=== PATIENT | female | born 1975 | race African-American/Black ===

== ENCOUNTER 2020-06-03 04:38 | Day surgery (SDC) | payer OTHER ==
[2020-06-01 15:12] VITALS: BMI 35.5
[2020-06-03] MEDS ORDERED: LIDOCAINE HCL/PF 2% SDV 5ML VIAL ONE (08:35)
[2020-06-03] MEDS ORDERED: DEXAMETHASONE SOD PHOSPHATE 4 MG/1 ML VIAL ONE (08:35)
[2020-06-03] MEDS ORDERED: MIDAZOLAM HCL 2 MG/2 ML SINGLE DOSE VIAL ONE (08:36)
[2020-06-03] MEDS ORDERED: PROPOFOL 20 ML ONE (08:36)
[2020-06-03] MEDS ORDERED: LIDOCAINE 1%/EPI 1:100000 (20 ML MULTI DOSE VIAL) ONE (09:18)
--- NOTE | 2020-06-03 09:20 | HP ---
History & Physical Update - History History: No Change - Physical Physical: No Change - Assessment Assessment: No Change - Plan Plan: No Change
[2020-06-03] MEDS ORDERED: ceFAZolin SODIUM 1 GM VIAL ONE (09:46)
[2020-06-03] MEDS ORDERED: ceFAZolin 2 GRAM PREMIX BAG IVPB ONE (09:50)
[2020-06-03] MEDS ORDERED: ONDANSETRON 4 MG/2 ML VIAL IVPUSH PRN (09:53)
[2020-06-03] MEDS ORDERED: oxyCODONE HCL 5 MG TABLET PO PRN (09:53)
[2020-06-03] MEDS ORDERED: LACTATED RINGERS SOLUTION 1,000 ML IV SCH (10:00)
[2020-06-03] MEDS ORDERED: LIDOCAINE 1%/EPI 1:100000 (20 ML MULTI DOSE VIAL) IJ ONE (10:02)
--- NOTE | 2020-06-03 10:30 | OP ---
Operative Note - Note: Operative Date: 06/03/20 Pre-Operative Diagnosis: right axillary hidradenitis/cysts Operation: Excision, right axillary hidradenitis/cysts Findings: 1.5 cm cystic lesions of the right axilla x 2 Post-Operative Diagnosis: Same as Pre-op Surgeon: Román Hanson Anesthesia: General, Local Specimens Removed: axillary hidradenitis/cysts Estimated Blood Loss (mls): 3 Operative Report Dictated: Yes
[2020-06-03] MEDS ORDERED: oxyCODONE HCL 5 MG TABLET ONE (11:36)
[2020-06-03] MEDS ORDERED: oxyCODONE HCL 5 MG TABLET PO ONE (11:40)
[2020-06-03 13:15] VITALS: BP 133/78; PULSE 50; TEMP 97.5
--- NOTE | 2020-06-03 13:50 | OP ---
DATE OF OPERATION: 06/03/2020 PROCEDURE: Excision of a right axillary hydradenitis/cyst. PREOPERATIVE DIAGNOSIS: Right axillary hydradenitis/cyst. POSTOPERATIVE DIAGNOSIS: Right axillary hydradenitis/cyst. SURGEON: Román Hanson MD ANESTHESIA: General by laryngeal mask airway. FINDINGS AND PROCEDURE: This is a 44-year-old female who presents with recurrent axillary hydradenitis presenting as 2 inflamed inflammatory cystic lesions of the right axilla about 1.5 cm in size. Patient was placed initially on oral antibiotics and advised excision of the cystic lesions 2 weeks later. Consent was obtained after discussing the risks, benefits, and alternatives to the procedure. Patient was brought to the operating room and placed in supine position. General anesthesia via laryngeal mask airway was administered. The right arm was abducted 90 degrees, and a roll was placed under the patient's right shoulder. The area was prepped and draped in the usual sterile fashion. Using lidocaine 1% with epinephrine, local anesthesia was administered to the proposed incision site. Two elliptical incisions about 3 x 1 cm in size were made using scalpel blade No. 10, and dissection was carried down further with Bovie cautery until the ellipses of skin together with the cystic masses were taken down to the deep subcutaneous tissue. The wounds were irrigated with sterile normal saline until return was clear. The wounds were then closed with interrupted nylon 3-0 sutures in vertical mattress fashion, dressed with Bacitracin ointment and covered with sterile dressing. Patient was successfully extubated and transferred to the postanesthesia care unit in satisfactory condition. ESTIMATED BLOOD LOSS: About 3 mL. WOUND CLASS: Clean, contaminated. PREOPERATIVE ANTIBIOTICS: The patient received a gram of Ancef prior to the start of the procedure. Kenroy [id number]
== END 2020-06-03 13:19 | disposition home or self-care (01) ==
LOC: JASU-SURG 04:38
PROVIDERS: ATTEND Surgery
PROC: 0JBD0ZZ Excision of Right Upper Arm Subcutaneous Tissue and Fascia, Open Approach (ICD-10-PCS; principal; 2020-06-03 09:30)
DX: L73.2 Hidradenitis suppurativa (principal)
CPT/HCPCS: 88304-TC; 94760